=== PATIENT | male | born 1995 | race Caucasian/White ===

== ENCOUNTER 2022-09-15 04:44 | Emergency (ER) | payer BC, MEDICAID ==
[~2022-09-15] VITALS: Ht 185.4 cm; Wt 83.9 kg
[2022-09-15] MEDS ORDERED: NACL 0.9% 1,000 ML IV ONE (05:45)
[2022-09-15] MEDS ORDERED: MORPHINE 4 MG INJ. 4 MG/ML VIAL IVP ONE (05:45)
[2022-09-15] MEDS ORDERED: PROCHLORPERAZINE EDISYLATE 10 MG/2 ML VIAL IVP ONE (05:45)
[2022-09-15 05:50] VITALS: BP_SYST 125
--- NOTE | 2022-09-15 05:50 | NUR ---
Pt placed to ER hallway 1. Pt c/o vomiting x 1 day. States he vomited 5-10 times over the past 24 hours. No active vomiting noted at this time.
--- NOTE | 2022-09-15 05:55 | NUR ---
Dr. Ma assessing pt.
--- NOTE | 2022-09-15 05:56 | NUR ---
# 20 gauge angiocath placed to LAC. Use of asceptic technique. Opsite placed over site. Blood return noted. Flushed with 10 cc of normal saline. No evidence of infiltration noted. Patient tolerated well.
--- NOTE | 2022-09-15 06:15 | NUR ---
Pt bib girlfriend to the emergency room complaining of abdominal pain. Pain has been present for 1 day. Pain described as a burning sensation throughout his whole abdomen. Pain associated with multiple episodes of nausea and vomiting. Pain radiates to the back. There is no fever chills or shortness of breath. Patient states that he feels some discomfort with urination.
[2022-09-15 06:26] LABS: CALCIUM 9.6 mg/dL (8.4-11.0); CREATININE 1.35 mg/dL (0.55-1.30)
[2022-09-15 06:30] LABS: ALBUMIN 4.4 g/dL (3.4-4.8); BASOPHILS % (AUTO) 0.2 % (0.0-2.0); HEMATOCRIT 45.2 % (36-54); HEMOGLOBIN 15.4 g/dL (14.0-18.0); LYMPHOCYTES # (AUTO) 0.9 K/uL (1.0-5.5); LYMPHOCYTES % (AUTO) 5.2 % (20.5-51.5); MEAN CORPUSCULAR HEMOGLOBIN 30 pg (27-31); MEAN CORPUSCULAR HGB CONC 34 % (32-36); MEAN CORPUSCULAR VOLUME 89 fL (79.0-98.0); MONOCYTES # (AUTO) 1.3 K/uL (0.0-1.0); MONOCYTES % (AUTO) 7.4 % (1.7-9.3); NEUTROPHILS # (AUTO) 14.9 K/uL (1.8-7.7); NEUTROPHILS % (AUTO) 87.2 % (40.0-70.0); PLATELET COUNT (AUTO) 205 K/uL (130-430); RED BLOOD CELL COUNT(AUTO) 5.09 MIL/uL (4.2-6.2); RED CELL DISTRIBUTION WIDTH 13.4 % (9.0-15.0); TOTAL BILIRUBIN 0.7 mg/dL (0.0-1.0); WHITE BLOOD COUNT (AUTO) 17.1 K/uL (4.8-10.8)
--- NOTE | 2022-09-15 06:34 | NUR ---
Note undone in EDM - 09/15/22 at 0634 by BRITTANY # 20 gauge angiocath placed to LAC. Use of asceptic technique. Opsite placed over site. Blood return noted. Blood for lab drawn from site. Flushed with 10 cc of normal saline. No evidence of infiltration noted. Patient tolerated well.
--- NOTE | 2022-09-15 07:47 | NUR ---
27 YEARS OLD MALE IN [facility] C/O NAUSEA VOMITING TODAY, ALERT, ORIENTED X4, IVF IN PROGRESS DENIES PAIN NO ACUTE DISTRESS WILL CONTINUE TO MONITOR.
[2022-09-15 08:20] LABS: BILIRUBIN,URINE NEGATIVE (NEGATIVE); BLOOD, URINE NEGATIVE (NEGATIVE); COLOR,URINE YELLOW (YELLOW); GLUCOSE,URINE NEGATIVE (NEGATIVE); KETONES,URINE 3+ (NEGATIVE); LEUKOCYTE ESTERASE ,URINE NEGATIVE (NEGATIVE); NITRITE, URINE NEGATIVE (NEGATIVE); PROTEIN URINE TRACE (NEGATIVE); UROBILINOGEN,URINE 0.2 (0.2-1.0)
[2022-09-15 08:47] LABS: CLARITY/URINE SLIGHTLY HAZY (CLEAR)
[2022-09-15 08:56] LABS: BACTERIA,URINE FEW /HPF (None Seen); MUCUS,URINE 1+ /LPF (None Seen); RBC,URINE 0-3 /HPF (0-3); WBC,URINE 0-3 /HPF (0-3)
[2022-09-15] MEDS ORDERED: ONDA-8 TL (09:30)
[2022-09-15] MEDS ORDERED: ZIT250 PO (09:30)
[2022-09-15 09:36] VITALS: BP_SYST 122
--- NOTE | 2022-09-15 09:44 | NUR ---
Patient given written and verbal discharge instructions and verbalizes understanding. ER MD discussed with patient the results and treatment provided. Patient in stable condition. ID arm band removed. IV catheter removed intact and dressing applied, no active bleeding. Rx of given. Patient educated on pain management and to follow up with PMD. Pain Scale . Opportunity for questions provided and answered. Medication side effect fact sheet provided.
--- NOTE | 2022-09-15 09:45 | NUR ---
PATIENT CONDITION IMPROVED D/C HOME WITH INSTRUCTIONS AFTER CARE REVIEWED UNDERSTOOD LEFT ER AMBULATORY WITH STEADY GAIT.
== END 2022-09-15 09:45 | disposition home or self-care (01) ==
LOC: SED 04:44
DX: B34.9 Viral infection, unspecified (principal); R11.10 Vomiting, unspecified; R10.9 Unspecified abdominal pain; Z79.899 Other long term (current) drug therapy; Z20.822 Contact with and (suspected) exposure to COVID-19
CPT/HCPCS: 99284; 74176; 96374; 96361; 96375; 87426; 80053; 81000; 83690; 85025; 36415; 76376; 87804 ×2; J0780; J2270; J7030

== ENCOUNTER 2024-02-21 09:36 | Emergency (ER) | payer MEDICAID ==
[~2024-02-21] VITALS: Ht 185.4 cm; Wt 81.6 kg
[~2024-02-21 09:36] MED LIST: ONDA-8 TL; ZIT250 PO
[2024-02-21 10:00] VITALS: BP_SYST 126; PULSE 67; RESP 18; TEMP 97.8; O2SAT 99
[2024-02-21] MEDS ORDERED: IBUP-1971 PO (11:46)
[2024-02-21] MEDS ORDERED: SOM350 PO (11:46)
== END 2024-02-21 12:10 | disposition home or self-care (01) ==
LOC: SED 09:36
DX: S13.4XXA Sprain of ligaments of cervical spine, initial encounter (principal); W18.2XXA Fall in (into) shower or empty bathtub, initial encounter; Y93.89 Activity, other specified; Y92.89 Other specified places as the place of occurrence of the external cause; Y99.8 Other external cause status
CPT/HCPCS: 72040; 99283